=== PATIENT | female | born 1965 | race Caucasian/White ===

== ENCOUNTER 2017-06-13 06:12 | Day surgery (SDC) | payer SELFPAY ==
[2017-06-13] MEDS ORDERED: LIDOCAINE 1%/EPI 1:100000 (50 ML MULTI DOSE VIAL) INF ONE (07:35)
[2017-06-13] MEDS ORDERED: TETRACAINE 0.5% HCL 0.6ML DROPPER.BOTTLE OU ONE (07:37)
[2017-06-13] MEDS ORDERED: BACITRACIN 15 GM TUBE TOPICAL OINTMENT ONE (07:44)
[2017-06-13] MEDS ORDERED: LIDOCAINE 1%/EPI 1:100000 (20 ML MULTI DOSE VIAL) ONE (07:44)
[2017-06-13] MEDS ORDERED: MIDAZOLAM HCL 2 MG/2 ML SINGLE DOSE VIAL ONE ×3 (07:54→08:34)
[2017-06-13] MEDS ORDERED: DEXAMETHASONE SOD PHOSPHATE 4 MG/1 ML VIAL ONE (07:54)
[2017-06-13] MEDS ORDERED: ONDANSETRON 4 MG/2 ML VIAL ONE (07:54)
[2017-06-13] MEDS ORDERED: PROPOFOL 20 ML ONE ×5 (07:54→09:36)
[2017-06-13] MEDS ORDERED: SUCCINYLCHOLINE CHLORIDE 200 MG/10 ML VIAL ONE (07:57)
[2017-06-13] MEDS ORDERED: TETRACAINE 0.5% OPHTH SOLN 2 ML BOTTLE ONE (08:23)
[2017-06-13] MEDS ORDERED: LIDOCAINE HCL 2% 100 MG/5 ML DISP.SYRIN ONE ×2 (08:23→08:24)
[2017-06-13] MEDS ORDERED: BACITRACIN 15 GM TUBE TOPICAL OINTMENT TP ONE (08:55)
[2017-06-13] MEDS ORDERED: BSS (NA/CA/MG/K) BALANCED SALT SOLUTION OPHTH SOLN 15 ML BOTTLE ONE (09:42)
[2017-06-13] MEDS ORDERED: oxyCODONE HCL 5 MG TABLET PO PRN (11:14)
[2017-06-13] MEDS ORDERED: ONDANSETRON 4 MG/2 ML VIAL IVPUSH PRN (11:14)
[2017-06-13] MEDS ORDERED: LACTATED RINGERS SOLUTION 1,000 ML IV SCH (11:15)
[2017-06-13] MEDS ORDERED: ACETAMINOPHEN 325 MG TABLET (FP) ONE (11:30)
[2017-06-13 11:37] VITALS: TEMP 98.8
[2017-06-13 12:29] VITALS: BP 106/72; PULSE 76
[2017-06-13] MEDS ORDERED: ACETAMINOPHEN 325 MG TABLET (FP) PO ONE (12:31)
--- NOTE | 2017-06-14 11:17 | OP ---
DATE OF OPERATION: 06/13/2017 SURGEON: Laura Doll MD PREOPERATIVE DIAGNOSIS: Upper and lower lid blepharochalasis. OPERATIVE PROCEDURE: 1. Upper lid bilateral blepharoplasty. 2. Lower lid bilateral blepharoplasty. POSTOPERATIVE DIAGNOSIS: Upper and lower lid blepharochalasis. OPERATIVE INDICATION: Patient is a young woman who desires correction of the overhanging skin and tightening of the lower lid skin and subcutaneous tissue on the lower and upper lids. The risks and benefits of surgical versus nonsurgical alternatives as well as the material complications of the procedure were described on multiple occasions preoperatively. She agreed to the planned procedure, understood scarring at the eyelid junctions, and agreed to the planned procedure after all questions were asked and answered. OPERATIVE PROCEDURE IN DETAIL: Patient was taken to the operating room, and after induction of monitored care anesthesia in the supine position, both arms were protected, Venodyne boots were placed, and a warming blanket was placed. The entire upper face was prepped with ChloraPrep solution after the markings had been made in the sitting position in the holding area preoperatively with the patient's knowledge. At this point, sterile drapes were placed in the usual fashion, and 1% local lidocaine anesthesia with 1:100,000 epinephrine was infiltrated into the upper and lower eyelids in the usual fashion for upper and lower blepharoplasty. After allowing 15 minutes of topical anesthesia and hemostasis, under optical magnification of 2.5 power, an incision was made with a number-15 scalpel down through the skin of the upper eyelid in the pattern which was drawn preoperatively. The skin and orbicularis muscle were excised in the upper lid according to the pattern, and hemostasis was meticulously obtained with the bipolar electrocautery. The medial and central compartments of fat in the upper lid were removed using electrocautery with bipolar, as well as the medial compartment on both sides, which showed excess fatty material. After hemostasis was achieved, the exact same procedure was carried out on the opposite left side, giving the exact same pattern according to the drawings. At this point, using a 5-0 Prolene suture, a subcuticular suture was run from medial to lateral, closing the upper lid incision in meticulous fashion. This was then temporized and cool dressings placed on the upper eyelids. The lower eyelids were attended, and previous injection down to the septum and lateral bony orbit had been infiltrated. At this point, again, under optical magnification, a subciliary incision was made along the lash line after a pinch technique of the lower lid, and the skin was then excised. Using careful dissection with the double hook and sharp scissors, the septum was encountered, opened in multiple places, and the bulging fat of the lower eyelid was partially removed and cauterized down to the level of the orbicularis muscle, down to the orbital rim. Once this was accomplished, hemostasis was meticulously obtained. The margin of the orbicularis was then assessed, and a small amount of extra skin was removed, hemostasis obtained, and the eyelid closed with multiple interrupted 6-0 silk sutures on the lower lid to prevent corneal abrasion. These were left long, and the other eye was attended to exactly in the same manner with the same results. The procedure had begun with the placement of eye pelayo with tetracaine on both eyes. The eye pelayo were then removed. Copious irrigation with BSS solution was carried out over the eye itself. All wounds looked excellent with no evidence of bleeding. Ice dressings were placed in the operating room, and she was transferred to the recovery room in satisfactory condition and tolerated the procedure well. LAURA DOLL M.D. [id number]
== END 2017-06-13 12:20 | disposition home or self-care (01) ==
LOC: FASU 06:12
PROVIDERS: ATTEND Plastic Surgery
PROC: 08SN0ZZ Reposition Right Upper Eyelid, Open Approach (ICD-10-PCS; 2017-06-13)
PROC: 08SP0ZZ Reposition Left Upper Eyelid, Open Approach (ICD-10-PCS; principal; 2017-06-13 08:00)
DX: H02.35 Blepharochalasis left lower eyelid (principal); H02.34 Blepharochalasis left upper eyelid; H02.32 Blepharochalasis right lower eyelid; H02.31 Blepharochalasis right upper eyelid
CPT/HCPCS: 94760

== ENCOUNTER 2018-05-08 06:07 | Day surgery (SDC) | payer BC ==
[2018-05-08] MEDS ORDERED: EPINEPHrine/PF 1 MG/1 ML (1:1,000) AMPULE ONE ×2 (07:21→07:22)
[2018-05-08] MEDS ORDERED: BACITRACIN 15 GM TUBE TOPICAL OINTMENT ONE (07:21)
[2018-05-08] MEDS ORDERED: LIDOCAINE 1%-EPI 1:100,000 30 ML MDV IJ ONE (07:21)
[2018-05-08] MEDS ORDERED: ceFAZolin SODIUM 1 GM VIAL ONE (07:21)
[2018-05-08] MEDS ORDERED: LIDOCAINE HCL 1%, 10 MG/ML (20ML VIAL) ONE ×3 (07:21→07:38)
[2018-05-08] MEDS ORDERED: GENTAMICIN SO4 80 MG/2 ML VIAL ONE (07:21)
[2018-05-08] MEDS ORDERED: PROPOFOL 20 ML ONE (07:50)
[2018-05-08] MEDS ORDERED: MIDAZOLAM HCL 2 MG/2 ML SINGLE DOSE VIAL ONE (07:50)
[2018-05-08] MEDS ORDERED: ROCURONIUM BROMIDE 50 MG/5 ML VIAL ONE (07:51)
[2018-05-08] MEDS ORDERED: DESFLURANE GAS 240 ML BOTTLE IH ONE (08:57)
[2018-05-08] MEDS ORDERED: ceFAZolin SODIUM 1 GM VIAL IVPB ONE (09:01)
[2018-05-08] MEDS ORDERED: ONDANSETRON 4 MG/2 ML VIAL IVPUSH PRN (09:25)
[2018-05-08] MEDS ORDERED: oxyCODONE HCL 5 MG TABLET PO PRN (09:25)
[2018-05-08] MEDS ORDERED: LACTATED RINGERS SOLUTION 1,000 ML IV SCH (09:30)
[2018-05-08] MEDS ORDERED: DEXAMETHASONE SOD PHOSPHATE 4 MG/1 ML VIAL ONE (10:12)
--- NOTE | 2018-05-08 10:52 | OP ---
Operative Note - Note: Operative Date: 05/08/18 Pre-Operative Diagnosis: Ruptured Breast Implant post mastectomy. Acquired chest wall deformity Operation: Reconstruction both breasts with other technique,Bilateral Implant exchange,. Capsulectomy right breast Findings: Right breast implant internal rupture Implants: Sientra 565cc smooth round HP 2 Surgeon: Mark Doll Anesthesia: General Estimated Blood Loss (mls): 20
[2018-05-08] MEDS ORDERED: FAMOTIDINE 20 MG/50 ML IVPB 20 MG/50 ML MG IVPB ONE ×2 (11:05→14:10)
[2018-05-08] MEDS ORDERED: FAMOTIDINE 20 MG PREMIXED IVPB IVPB ONE (11:10)
[2018-05-08] MEDS ORDERED: ONDANSETRON 4 MG/2 ML VIAL ONE (11:18)
[2018-05-08] MEDS ORDERED: PROMETHAZINE HCL 25 MG/1 ML VIAL ONE (11:25)
[2018-05-08] MEDS ORDERED: PROMETHAZINE HCL 25 MG/1 ML VIAL IVPB ONE (11:45)
[2018-05-08] MEDS ORDERED: ACETAMINOPHEN INJECTION 100 ML IVPB ONE (11:47)
[2018-05-08] MEDS ORDERED: ACETAMINOPHEN 1000 MG/100 ML VIAL (NON FORMULARY) IVPB ONE (11:50)
[2018-05-08 14:07] VITALS: BP 105/65; PULSE 68; TEMP 97.7
--- NOTE | 2018-05-08 14:38 | OP ---
DATE OF OPERATION: 05/08/2018 SURGEON: Dr. Manny Doll PREOPERATIVE DIAGNOSES: 1. Bilateral acquired chest wall deformity status post bilateral mastectomy. 2. Ruptured right breast implant. 3. Asymmetry of reconstructed chest wall. 4. Mechanical complication of breast implant. POSTOPERATIVE DIAGNOSES: 1. Bilateral acquired chest wall deformity status post bilateral mastectomy. 2. Ruptured right breast implant. 3. Asymmetry of reconstructed chest wall. 4. Mechanical complication of breast implant. OPERATIVE PROCEDURE: 1. Right breast reconstruction utilizing other technique. 2. Left breast reconstruction utilizing other technique. 3. Right breast capsulectomy, removal of ruptured right breast implant with replacement. 4. Left breast capsulotomy, removal and replacement of left breast implant. PREOPERATIVE INDICATIONS: Patient is a 52-year-old white female who underwent bilateral mastectomy for breast cancer, subsequent radiation therapy and chemotherapy for cancer on the left side. The patient presented with significant symptoms on the right breast with 2 large lymph nodes in the axilla. The patient also underwent right axillary lymph node excision on the right breast. The patient change in shape of her implant, was evaluated with ultrasound and MRI, which showed a rupture of the right breast implant. The patient was brought to the operating room for the above procedures. All questions were asked and answered. The patient was marked in the standing position preoperatively, and all questions were asked and answered to her satisfaction preoperatively. The markings were made, and she was taken to the operating room. OPERATIVE PROCEDURE IN DETAIL: The patient was taken to the operating room, and after induction of general anesthesia in the supine position, both arms were extended and padded. Venodyne boots were placed, and then, the entire chest wall, abdomen and flanks were prepped with ChloraPrep solution over the entire extent for the usual preparation for breast reconstruction. At this point, after time-out and placement of sterile drapes, attention was turned to the mastectomy scars. These scars on the left breast along the lateral portion of the breast from mastectomy and the transverse scar at the mid portion of the right breast were injected with 1% local lidocaine anesthesia with 1:100,000 epinephrine. Also injected was the right axillary region, where axillary node excision and dissection was indicated for palpable nodes in the axilla. The medical oncologist asked for removal of these lymph nodes for pathologic diagnosis. An incision was made in the left breast through the mastectomy scar down through the skin into the subcutaneous tissue, through the subcutaneous tissue using electrocautery, and down to the underlying capsule. I then performed a capsulotomy by opening the capsule superiorly and inferiorly, vertically along the scar, which was in a vertical fashion from previous mastectomy. The implant was then encountered and removed. This was a Hope 550 mL Siltex Implant, which was sent for pathologic diagnosis. Examination of the capsule showed no evidence of any problems and the capsule was then expanded superiorly and laterally in the superior portion near the pectoralis major muscle in order to accept the new device and reconstructive tissue. Hemostasis was meticulously obtained throughout the pocket, and the pocket was copiously irrigated with triple antibiotic solution and saline. At this point, attention was turned to the right breast. The incision on the lateral portion of the breast from the lateral extent, from the nipple areolar complex out, was opened under optical magnification of 2.5 power, carried down through the skin to subcutaneous tissue. The subcutaneous tissue was incised along the course of the wound. At this point, dissection was carried down through the subcutaneous tissue and then through the pectoralis major muscle down to underlying capsule. The capsule was then opened using electrocautery, and upon opening the capsule, fluid was extruded through the wound, which appeared to be cloudy. This fluid was then cultured with a swab culture and sent for microbiology. A small amount of this fluid was seen and no significant seroma was noted. Upon removing the device itself, it was also the same implant which was sent for pathologic diagnosis, and then copious irrigation of the pocket was carried out using triple antibiotic solution and cleansing with saline. Once this device was removed, attention was then turned to the abdominal wall. An incision was made on both the left and right sides for abdominal tissue. Dissection was carried down over the rectus muscle laterally to the oblique muscles laterally into the deep plane over the fascia. Subcutaneous tissue was then harvested for reconstruction on both right and left flanks and in the midline connecting the external oblique area. This tissue was cleansed, washed, and prepared on the back table. At this point, attention was turned to the right axilla. A previous scar in the right axilla was used for access to the right axillary palpable lymph nodes. After injecting 1% local lidocaine anesthesia, and incision was made down through the scar in the axilla down through the subcutaneous tissue to the underlying lymph node packet. Dissection was carefully carried out using optical magnification of .2.5 power into the axilla identifying 2 large palpable lymph nodes in the axilla. Hemostasis was meticulously obtained throughout cauterizing any points of bleeding vessels, and dissection was carried out cleanly. Using electrocautery, the lymph nodes were removed, 2 in number, which appeared to be soft and plump. These were sent for pathologic diagnosis, and then, the axilla was copiously irrigated. At this point, both breasts and the axilla were irrigated with triple antibiotic solution, and then, the tissue which had been harvested was transferred to the right and left breasts in the superior, medial, and central portions of the right breast, and superior over the pectoralis muscle, medial and lateral portions of the left breast. At this point, an implant was chosen for the reconstruction. A Sientra style 107, high profile, 565 mL implant was placed into the right breast pocket using the Phillips funnel and a no-touch technique. The exact same procedure was carried out on the left breast after placement of the reconstructive tissue, and also showed good contour. Both wounds were closed symmetrically using 3-0 PDS sutures on the deep capsule and fascia with interlocking running sutures in a watertight closure. Deep tissue was carried out closing the deep dermis with 3-0 PDS sutures in interrupted fashion, and then, a running subcuticular suture with 4-0 Biosyn was placed into the skin on both breasts. The axilla was also closed using 3-0 PDS suture on the deepest tissue on the clavipectoral fascia. Deep dermis was also closed with 3-0 suture, and then, a running 5-0 plain catgut suture was placed into the skin for approximation. The donor site was closed with interrupted and running sutures on the abdomen, and the patient was dressed thoroughly with compressive dressings, was awakened, extubated, and transferred to the recovery room in a Surgi-Bra. She tolerated the procedure well. LAURA DOLL M.D. [id number]
--- NOTE | 2018-05-11 17:16 | PATH ---
Surgical Pathology Report Patient Name: SAHIL ALBA [facility]. Rec. #: [id number] /Age/Gender: 1965 (Age: 52) / F Account: [id number] Location: [facility] SURGICAL Taken: 05/08/2018 Received: 05/08/2018 Reported: 05/11/2018 Physicians: Mark Doll Specimen(s) Received A: BREAST CAPSULE, RIGHT B: LYMPH NODE, RIGHT AXILLARY C: BILATERAL REMOVED BREAST IMPLANTS Clinical History Breast cancer Final Diagnosis A. CAPSULE RIGHT BREAST, EXCISION: FIBROUS CAPSULE SHOWING CHRONIC INFLAMMATION WITH REACTIVE CHANGE AND NUMEROUS VACUOLATED HISTIOCYTIC INFILTRATE. B. AXILLARY LYMPH NODES, EXCISION: TWO LYMPH NODES SHOWING NUMEROUS HISTIOCYTES WITH VACUOLATED CYTOPLASM, MULTINUCLEATED GIANT CELLS WITH ROUND TRANSPARENT VACUOLES AND OCCASIONAL ASTEROID BODIES, AND LARGE VACUOLES WHICH CONTAIN REFRACTILE MATERIAL. Comment: Findings are consistent with silicone lymphadenopathy. C. BILATERAL REMOVED BREAST IMPLANTS: CONSISTENT WITH BREAST IMPLANTS. GROSS EXAMINATION ONLY. Electronically Signed Peg Jones M.D. Gross Description A. Received in formalin labeled "capsule right breast," is a 1.3 x 1.0 x 0.4 cm portion of villalobos-pink fibrous tissue, consistent with a portion of fibrous capsule. The specimen is trisected and entirely submitted in one cassette. B. Received in formalin labeled "right axillary lymph nodes," are 2 pink-villalobos lymph nodes measuring 1.8 x 1.7 x 0.6 cm and 2.5 x 1.6 x 0.8 cm. The lymph nodes are sectioned and entirely submitted in 5 cassettes as follows: 6-0-tlqeuonn smaller lymph node; 6-1-dmwigijdo larger lymph node. C. Received fresh labeled "bilateral removed breast implants," are 2 villalobos, rubbery breast implants averaging 14 cm in diameter and 4 cm in depth. No gross disruption identified at the surface. No soft tissue is present. No sections are [place], gross only. 05/08/201805/08/2018
== END 2018-05-08 14:08 | disposition home or self-care (01) ==
LOC: JASU-SURG 06:07
PROVIDERS: ATTEND Plastic Surgery
PROC: 0HPU0JZ Removal of Synthetic Substitute from Left Breast, Open Approach (ICD-10-PCS; 2018-05-08)
PROC: 0HPT0JZ Removal of Synthetic Substitute from Right Breast, Open Approach (ICD-10-PCS; 2018-05-08)
PROC: 0HRV0JZ Replacement of Bilateral Breast with Synthetic Substitute, Open Approach (ICD-10-PCS; 2018-05-08)
PROC: 0HRV07Z Replacement of Bilateral Breast with Autologous Tissue Substitute, Open Approach (ICD-10-PCS; principal; 2018-05-08 08:00)
DX: M95.4 Acquired deformity of chest and rib (principal); Z90.13 Acquired absence of bilateral breasts and nipples; N65.1 Disproportion of reconstructed breast; T85.41XA Breakdown (mechanical) of breast prosthesis and implant, initial encounter; T85.49XA Other mechanical complication of breast prosthesis and implant, initial encounter; Y92.89 Other specified places as the place of occurrence of the external cause
CPT/HCPCS: 87070; 87205; 88300-TC; 88304-TC; 88305-TC; 94760; J0131